=== PATIENT | female | born 1970 | race Caucasian/White ===

== ENCOUNTER 2023-06-18 10:36 | Emergency (ER) | payer OTHER ==
[2023-06-18 10:52] VITALS: BP 125/65; RESP 18; BMI 43.9
[2023-06-18 12:02] VITALS: PULSE 71; TEMP 98.4
== END 2023-06-18 13:23 | disposition home or self-care (01) ==
LOC: JERFT 10:36 → JER 10:36 → JERFT 13:23
DX: J01.90 Acute sinusitis, unspecified (principal); J06.9 Acute upper respiratory infection, unspecified; R09.81 Nasal congestion; R05.9 Cough, unspecified; R07.0 Pain in throat; R59.9 Enlarged lymph nodes, unspecified; Z20.822 Contact with and (suspected) exposure to COVID-19
CPT/HCPCS: 0241U-QW; 71046-TC-FY; 99284-25

== ENCOUNTER 2023-07-02 12:07 | Emergency (ER) | payer OTHER ==
[2023-07-02 12:12] VITALS: BP 128/68; PULSE 76; RESP 18; TEMP 98; BMI 43.0
== END 2023-07-02 14:27 | disposition home or self-care (01) ==
LOC: JERFT 12:07
DX: J02.9 Acute pharyngitis, unspecified (principal); Z20.822 Contact with and (suspected) exposure to COVID-19
CPT/HCPCS: 0241U-QW; 71046-TC-FY; 87070; 87651; 99284-25